=== PATIENT | female | born 1995 | race Hispanic/Latino ===

== ENCOUNTER 2023-06-11 20:49 | Emergency (ER) | payer SELFPAY ==
[~2023-06-11] VITALS: Ht 152.4 cm; Wt 77.1 kg
[2023-06-11 22:30] VITALS: O2SAT 97
== END 2023-06-11 22:46 | disposition home or self-care (01) ==
LOC: FSED 21:11
DX: R53.1 Weakness (principal); R73.03 Prediabetes
CPT/HCPCS: 80053; 81003; 81025; 85025; 99283